=== PATIENT | female | born 1955 | race American Indian/Alaskan Native ===

== ENCOUNTER 2017-10-28 10:23 | Emergency (ER) | payer MEDICARE ==
[2017-10-28] MEDS ORDERED: NACL 0.9% 1000 ML 1,000 ML IV ONE (11:08)
--- NOTE | 2017-10-28 11:08 | Emergency Department Report ---
[facility] - Documentation Documentation: Patient is a 61-year-old -[place] female who is complaining of right flank pain. Patient states a week ago she had a fall and has a scrape to her right upper extremity. The pain has gotten better but approximately 3 days ago patient started noticing some right flank and hip pain. Patient initially thought this was secondary to her chronic back pain but is has actually worsened. Patient also then thought that maybe she was discussed patient did take laxatives started having loose stools. Patient is noted to be hypotensive. Emergency Department possibly secondary to the increased bowel movements from the laxativ also the cause of the patient's flank pain is not known at this time. Patient be sent to the main ED for further evaluation. E.
[2017-10-28 11:48] LABS: Basophils % (Auto) 0.9 % (0.0-1.8); Eosinophils # (Auto) 0.1 K/mm3 (0.0-0.4); Eosinophils % (Auto) 2.3 % (0.0-4.3); Hematocrit 33.4 % (30.3-42.9); Hemoglobin 11.1 gm/dl (10.1-14.3); Lymphocytes % (Auto) 19.4 % (13.4-35.0); Mean Corpuscular HGB Conc 33 % (30-34); Mean Corpuscular Hemoglobin 29 pg (28-32); Mean Corpuscular Volume 88 fl (79-97); Monocytes # (Auto) 0.4 K/mm3 (0.0-0.8); Monocytes % (Auto) 8.7 % (0.0-7.3); Platelet Count 270 K/mm3 (140-440); Red Blood Count 3.77 M/mm3 (3.65-5.03); Red Cell Distribution Width 14.7 % (13.2-15.2)
[2017-10-28 11:56] LABS: Albumin 3.6 g/dL (3.9-5); Calcium 9.3 mg/dL (8.4-10.2)
[2017-10-28] MEDS ORDERED: SUBLIMAZE IV ONE (12:02)
[2017-10-28] MEDS ORDERED: HumuLIN R IV ONE (12:02)
--- NOTE | 2017-10-28 12:03 | Emergency Department Report ---
ED General Adult HPI - General Chief complaint: Fall Stated complaint: C/O BROKEN HIP Time Seen by Provider: 10/28/17 10:51 Source: patient, RN notes reviewed Mode of arrival: Wheelchair Limitations: No Limitations - History of Present Illness Initial comments: This is a 62-year-old female, unknown to this provider previously. Primary care doctor is at [facility]. Past medical history includes diabetes, hypertension, glaucoma, chronic back pain, spinal stenosis. Patient was following at the pain center at [place], and was referred to outpatient neurology for her spinal stenosis. She indicates she has not followed up as of yet. She presents to the ER with right hip pain after a mechanical fall 1 week ago. The pain is sharp, increases with palpation and decreases with rest. It does not radiate anywhere. She reports that she tripped and she fell onto her stomach, right elbow, and hip. She did not hit her head. She denies midline neck pain, weakness, numbness, unsteady gait. -: Sudden Location: right, lower extremity Radiation: non-radiation Quality: aching Consistency: intermittent Improves with: medication, rest Worsens with: movement Associated Symptoms: rash (abrasion to right upper extremity). denies: confusion, chest pain, cough, diaphoresis, fever/chills, headaches, loss of appetite, malaise, nausea/vomiting, shortness of breath, syncope, weakness - Related Data Previous Rx's Medication Instructions Recorded Last Taken Type Acetaminophen [Tylenol Arthritis] 650 mg PO Q6HR PRN #30 tablet.er 10/28/17 Unknown Rx Allergies Allergy/AdvReac Type Severity Reaction Status Date / Time No Known Allergies Allergy Unverified 10/28/17 10:28 ED Review of Systems ROS: Stated complaint: C/O BROKEN HIP Other details as noted in HPI Comment: All other systems reviewed and negative ED Past Medical Hx - Past Medical History Hx Hypertension: Yes Hx Diabetes: Yes Additional medical history: chronic back pain, glaucoma - Surgical History Additional Surgical History: hyst - Social History Smoking Status: Never Smoker Substance Use Type: None - Medications Home Medications: Home Medications Medication Instructions Recorded Confirmed Last Taken Type Acetaminophen [Tylenol Arthritis] 650 mg PO Q6HR PRN #30 tablet.er 10/28/17 Unknown Rx ED Physical Exam - General Limitations: Physical Limitation General appearance: alert, in no apparent distress, in distress - Head Head exam: Present: atraumatic, normocephalic - Eye Eye exam: Present: normal appearance, EOMI. Absent: nystagmus - ENT ENT exam: Present: normal exam, normal orophraynx, mucous membranes moist, normal external ear exam - Neck Neck exam: Present: normal inspection, full ROM - Respiratory Respiratory exam: Present: normal lung sounds bilaterally. Absent: respiratory distress - Cardiovascular Cardiovascular Exam: Present: normal rhythm, bradycardia, normal heart sounds. Absent: tachycardia, irregular rhythm, systolic murmur, diastolic murmur, rubs, gallop - GI/Abdominal GI/Abdominal exam: Present: soft, normal bowel sounds. Absent: distended, tenderness, guarding, rebound, rigid, pulsatile mass - Extremities Exam Extremities exam: Present: full ROM (chaperoned by RN Krista Lopez), tenderness, normal capillary refill, other (there is proximal right femur tenderness. There is no pelvic instability.). Absent: normal inspection ( there is no abrasion to the right elbow. There is no right elbow tenderness. There is full range of motion in the bilateral upper extremities. The compartments are soft. The pelvis is stable. There is no long bony tenderness. ), pedal edema, joint swelling, calf tenderness - Back Exam Back exam: Present: normal inspection, full ROM, paraspinal tenderness. Absent : tenderness, CVA tenderness (R), vertebral tenderness - Neurological Exam Neurological exam: Present: alert, oriented X3, CN II-XII intact, other ( Extraocular movements intact. Tongue midline. No facial droop. Facial sensation intact to light touch in the V1, V2, V3 distribution bilaterally. 5 and 5 strength in 4 extremities.. Sensation is intact to light touch in 4 extremities.). Absent: motor sensory deficit - Psychiatric Psychiatric exam: Present: normal affect, normal mood - Skin Skin exam: Present: warm, dry, intact, normal color, rash (abrasion to right dorsal elbow) ED Course Vital Signs 10/28/17 10/28/17 10/28/17 10:28 11:12 11:15 Temperature 98.7 F Pulse Rate 69 50 L 66 Respiratory 18 10 L 23 Rate Blood Pressure 96/47 117/50 O2 Sat by Pulse 96 97 99 Oximetry 10/28/17 10/28/17 10/28/17 11:31 11:45 12:00 Temperature Pulse Rate 56 L 55 L 55 L Respiratory 22 11 L 14 Rate Blood Pressure 111/53 111/53 106/61 O2 Sat by Pulse 98 98 97 Oximetry - Reevaluation(s) Reevaluation #1: 10/28/17 12:42 Differential diagnosis, including not limited to: Dehydration, abrasion, fracture, dislocation Assessment and plan: 62-year-old female status post mechanical fall 1 week ago. She has no neurologic deficits at this time, she is clinically sober, with a GCS of 15.Patient is clinically sober at this time. The cervical spine is cleared through nexus and greenlandic c spine rule Dorsi and plantar flexion are intact in the bilateral lower extremities, with downgoing plantar reflexes. Down to be intermittently hypotensive, laboratory studies ordered, demonstrated hyperglycemia and mild renal insufficiency. X- rays did not demonstrate any obvious fracture or dislocation, blood pressure improved, the patient will be referred to outpatient primary care and pain specialist. Reevaluation #2: 10/28/17 12:52 Fingerstick less than 300. Walks with a cane. Feels improved. Educated about hyperglycemia and renal insufficiency. Instructed to avoid Motrin, ibuprofen, NSAIDs. ED Medical Decision Making - Lab Data Result diagrams: 10/28/17 11:31 10/28/17 11:28 Vital Signs 10/28/17 10/28/17 10/28/17 10:28 11:12 11:15 Temperature 98.7 F Pulse Rate 69 50 L 66 Respiratory 18 10 L 23 Rate Blood Pressure 96/47 117/50 O2 Sat by Pulse 96 97 99 Oximetry 10/28/17 10/28/17 10/28/17 11:31 11:45 12:00 Temperature Pulse Rate 56 L 55 L 55 L Respiratory 22 11 L 14 Rate Blood Pressure 111/53 111/53 106/61 O2 Sat by Pulse 98 98 97 Oximetry Lab Results 10/28/17 10/28/17 Range/Units 11:28 11:31 WBC 5.1 (4.5-11.0) K/mm3 RBC 3.77 (3.65-5.03) M/mm3 Hgb 11.1 (10.1-14.3) gm/dl Hct 33.4 (30.3-42.9) % MCV 88 (79-97) fl MCH 29 (28-32) pg MCHC 33 (30-34) % RDW 14.7 (13.2-15.2) % Plt Count 270 (140-440) K/mm3 Lymph % (Auto) 19.4 (13.4-35.0) % Mckinley % (Auto) 8.7 H (0.0-7.3) % Eos % (Auto) 2.3 (0.0-4.3) % Baso % (Auto) 0.9 (0.0-1.8) % Lymph # 1.0 L (1.2-5.4) K/mm3 Mckinley # 0.4 (0.0-0.8) K/mm3 Eos # 0.1 (0.0-0.4) K/mm3 Baso # 0.0 (0.0-0.1) K/mm3 Seg Neutrophils % 68.7 (40.0-70.0) % Seg Neutrophils # 3.5 (1.8-7.7) K/mm3 Sodium 138 (137-145) mmol/L Potassium 4.3 (3.6-5.0) mmol/L Chloride 101.5 (98-107) mmol/L Carbon Dioxide 23 (22-30) mmol/L Anion Gap 18 mmol/L BUN 20 H (7-17) mg/dL Creatinine 1.6 H (0.7-1.2) mg/dL Estimated GFR 39 ml/min BUN/Creatinine Ratio 13 % Glucose 352 H (65-100) mg/dL Calcium 9.3 (8.4-10.2) mg/dL Total Bilirubin 0.50 (0.1-1.2) mg/dL AST 13 (5-40) units/L ALT 9 (7-56) units/L Alkaline Phosphatase 84 (35-129) units/L Total Protein 7.2 (6.3-8.2) g/dL Albumin 3.6 L (3.9-5) g/dL Albumin/Globulin Ratio 1.0 % - Radiology Data Radiology results: image reviewed interpreted by me: X-ray of the hip and pelvis, interpreted by me: PAPA, no acute disease Critical care attestation.: If time is entered above; I have spent that time in minutes in the direct care of this critically ill patient, excluding procedure time. ED Disposition Clinical Impression: Fall, Hip pain, Renal insufficiency, Hyperglycemia Disposition: TO HOME OR SELFCARE Is pt being admited?: No Does the pt Need Aspirin: No Condition: Stable Additional Instructions: Rest, and avoid heavy lifting. Avoid strenuous physical activity. Continue current outpatient medications. Laboratory studies indicated high blood sugar level, and impaired renal function. Follow-up with the primary care doctor for these within the next month. Pain typically gets worse before it gets better after a mechanical fall. Follow-up with the neurology specialist within the next month. Follow-up with an orthopedist for [facility] within the next week. Patient may benefit from physical therapy. Return to the ER right away with new pain, worsened pain, migration of pain, fevers, chills, lethargy, irritability, projectile vomiting, change in mental status, confusion, inability to tolerate liquid feeds. Prescriptions: Acetaminophen [Tylenol Arthritis] 650 mg PO Q6HR PRN #30 tablet.er PRN Reason: Pain Referrals: PASCALE BOGGS MD [Primary Care Provider] - 3-5 Days SUSIE MORTON MD [Referring] - 3-5 Days JAYLEEN WHIPPLE MD [Staff Physician] - 3-5 Days
[2017-10-28 12:27] VITALS: BP 106/61
[2017-10-28] MEDS ORDERED: BOOSTRIX IM ONE (12:38)
--- NOTE | 2017-10-28 12:39 | XRay Report ---
RIGHT HIP RADIOGRAPHS INDICATION: Right hip pain. COMPARISON: None similar at this institution. FINDINGS: AP pelvic and a frog-leg projection of the right hip demonstrate normal femoral head contours, well located within the acetabula. Numerous pelvic phleboliths. Bilateral iliac enthesophytes. Intact SI joints. Moderate lower lumbar degenerative spurring with suspected disc narrowing. Demineralized bones. Nonobstructive bowel gas pattern. CONCLUSION: No acute right hip radiographic abnormality with lower lumbar degenerative changes noted, as described. Thank you for the opportunity to participate in this patient's care.
== END 2017-10-28 13:40 | disposition home or self-care (01) ==
LOC: ED 10:23
DX: M25.551 Pain in right hip (principal); N28.9 Disorder of kidney and ureter, unspecified; E11.65 Type 2 diabetes mellitus with hyperglycemia; I10 Essential (primary) hypertension; Z98.890 Other specified postprocedural states; W18.39XA Other fall on same level, initial encounter; Y93.89 Activity, other specified; Y92.89 Other specified places as the place of occurrence of the external cause; Y99.8 Other external cause status
CPT/HCPCS: 36415; 73502; 80053; 82962; 85025; 90471; 90715; 96361; 96374; 96375; 99284; J3010; J7030; J1815